=== PATIENT | female | born 1995 | race Caucasian/White ===

== ENCOUNTER 2017-11-05 16:27 | Outpatient (CLI) | payer OTHER ==
--- NOTE | 2017-11-05 17:06 | RAD ---
3 VIEWS LUMBAR SPINE: Date: 11/05/17 COMPARISON: None. HISTORY: Low back pain radiating both hips and legs. FINDINGS: Five lumbar-type vertebral bodies are present with intact pedicles on frontal imaging. Lateral imagin g demonstrates normal vertebral body height and alignment. No acute osseous abnormality. IMPRESSION: No evidence for acute fracture. POS: [facility]
== END 2017-11-05 16:28 | disposition home or self-care (01) ==
LOC: SCSRAD 16:27
PROVIDERS: ATTEND Nurse Practitioner Family
DX: S39.012A Strain of muscle, fascia and tendon of lower back, initial encounter (principal)
CPT/HCPCS: 72100

== ENCOUNTER 2020-06-28 07:55 | Outpatient (CLI) | payer BC ==
[2020-06-28 10:07] LABS: Mean Corpuscular HGB CONC 33.3 g/dL (32.0-36.0); Mean Corpuscular Hemoglobin 29.3 pg (27.0-33.0); Mean Corpuscular Volume 88.1 fl (81.6-98.3); Mean Platelet Volume 9.6 fl (7.4-10.4); Platelet Count 357 10x3/uL (150-450); RBC Distribution Width 12.1 % (11.5-14.5); Red Blood Cell (RBC) Count 4.78 10x6/uL (3.90-5.03); White Blood Cell (WBC) Count 6.4 10x3/uL (3.5-10.5)
[2020-06-28 10:15] LABS: Bilirubin Neg (Negative); Blood, Urine 25 (Negative); Clarity Clear (Clear); Glucose, Urine (Dipstick) Normal (Negative); Ketone, Urine Negative (Negative); Leukocyte Negative (Negative); Nitrite Negative (Negative); Protein, Urine (Dipstick) Negative (Neg-Trace); Specific Gravity, Urine 1.015 (1.002-1.036); Urobilinogen Normal mg/dL (Less than 2)
[2020-06-28 10:15] LABS: Anion Gap 13 mmol/L (10-20); BUN (Urea Nitrogen) 15 mg/dL (7.0-18.7); Calc. Creatinine Clearance 0 mL/min (70-130); Calcium 9.4 mg/dL (7.8-10.44); Carbon Dioxide 26 mmol/L (22-29); Chloride 102 mmol/L (98-107); Glucose 87 mg/dL (70-105); Potassium 3.9 mmol/L (3.5-5.1); Sodium 137 mmol/L (136-145)
[2020-06-28 10:33] LABS: BHCG - Serum Negative (NEGATIVE); Pregs Control Background? CLEAR/WHITE (CLR/WHITE); Pregs Control Bar Appear? YES (CONTROL BAR)
[2020-06-28 10:42] LABS: Bacteria/HPF 2+ HPF (None Seen); Mucous/LPF 1+ LPF (<2+); Oval Fat Bodies/HPF Rare HPF (None Seen)
[2020-06-28 18:59] LABS: SARS-CoV-2 PCR by NAA Not Detected (NotDetected)
== END 2020-06-28 07:56 | disposition home or self-care (01) ==
LOC: LABBT 07:55
PROVIDERS: ATTEND Urology
DX: Z01.812 Encounter for preprocedural laboratory examination (principal); Z20.822 Contact with and (suspected) exposure to COVID-19; N20.1 Calculus of ureter
CPT/HCPCS: 80048; 81001; 84703; 85027; 87086; 87635; U0003; U0005

== ENCOUNTER 2020-07-01 10:57 | Day surgery (SDC) | payer BC ==
[2020-06-30 11:45] VITALS: BMI 48.5
[2020-07-01] MEDS ORDERED: Levofloxacin 500 mg/D5W 100 ml Premix Bag ONE (11:39)
[2020-07-01] MEDS ORDERED: Midazolam HCl 2 mg/2 ml Vial ONE (12:15)
[2020-07-01] MEDS ORDERED: Ondansetron ODT 4 MG TAB ONE (12:15)
[2020-07-01] MEDS ORDERED: Fentanyl 100 MCG/2 ML VIAL ONE (12:31)
[2020-07-01] MEDS ORDERED: Iothalamate Meglumine 60% 50 ML VIAL FS ONE (12:33)
[2020-07-01] MEDS ORDERED: Rocuronium Bromide 10 MG/ML (10ML VIAL) ONE (12:51)
[2020-07-01] MEDS ORDERED: PROPOFOL 200 MG/20 ML VIAL ONE (12:51)
[2020-07-01] MEDS ORDERED: Glycopyrrolate 0.2 MG/ML 5 ML SYRINGE ONE (12:51)
[2020-07-01] MEDS ORDERED: Ondansetron PF 4 MG/2 ML Vial ONE (12:51)
[2020-07-01] MEDS ORDERED: Lidocaine 1% PF 5 ML VIAL ONE (12:51)
[2020-07-01] MEDS ORDERED: Promethazine HCl 25 MG/ML VIAL ONE (13:34)
[2020-07-01] MEDS ORDERED: Oxybutynin 5 MG TAB ONE (14:47)
[2020-07-01] MEDS ORDERED: Ketorolac Tromethamine 30 MG/ML VIAL ONE (14:47)
[2020-07-08 15:14] LABS: CA Oxalate Dihydrate 30 % (.); CA Oxalate Monohydrate 70 % (.); Color Brown (.); Stone Weight 6 mg (.)
== END 2020-07-01 15:20 | disposition home or self-care (01) ==
LOC: SDC 10:57
PROVIDERS: ATTEND Urology
PROC: 0TC78ZZ Extirpation of Matter from Left Ureter, Via Natural or Artificial Opening Endoscopic (ICD-10-PCS; principal; 2020-07-01)
PROC: 0T778DZ Dilation of Left Ureter with Intraluminal Device, Via Natural or Artificial Opening Endoscopic (ICD-10-PCS; principal; 2020-07-01)
DX: N13.2 Hydronephrosis with renal and ureteral calculous obstruction (principal); Z88.5 Allergy status to narcotic agent; Z88.8 Allergy status to other drugs, medicaments and biological substances
CPT/HCPCS: 74420; 82365; 88300; J1885; J1956; J2250; J2405; J2550; J2704; J3010; Q0162; Q9961

== ENCOUNTER 2020-08-12 12:02 | Day surgery (SDC) | payer BC ==
[2020-08-12] MEDS ORDERED: Fentanyl 100 MCG/2 ML VIAL ONE ×4 (13:39→18:20)
[2020-08-12] MEDS ORDERED: Piperacillin/Tazobactam 4.5 GM in Sodium Chloride 0.9% 100 ML IVPB SCH ×2 (14:30→20:00)
[2020-08-12] MEDS ORDERED: Bupivacaine 0.25% HCL 30 ML VIAL ONE (15:37)
[2020-08-12] MEDS ORDERED: Lidocaine 1% w/Epinephrine 1:100K 20 ML VIAL ONE (15:37)
[2020-08-12] MEDS ORDERED: Midazolam HCl 2 mg/2 ml Vial ONE (15:48)
[2020-08-12] MEDS ORDERED: Glycopyrrolate 0.2 MG/ML 5 ML SYRINGE ONE (16:09)
[2020-08-12] MEDS ORDERED: PROPOFOL 200 MG/20 ML VIAL ONE (16:09)
[2020-08-12] MEDS ORDERED: Dexamethasone 20 MG/5 ML VIAL ONE (16:09)
[2020-08-12] MEDS ORDERED: Succinylcholine 200 MG/10 ml SYRINGE FS ONE (16:09)
[2020-08-12] MEDS ORDERED: diphenhydrAMINE 50 MG/ML VIAL ONE (16:09)
[2020-08-12] MEDS ORDERED: Rocuronium Bromide 10 MG/ML (10ML VIAL) ONE (16:09)
[2020-08-12] MEDS ORDERED: Ketorolac Tromethamine 30 MG/ML VIAL ONE (16:09)
[2020-08-12] MEDS ORDERED: Ondansetron PF 4 MG/2 ML Vial ONE (16:09)
[2020-08-12] MEDS ORDERED: HYDROcodone/Acetaminophen 5/325 mg Tablet ONE ×2 (19:45→20:32)
[2020-08-12] MEDS ORDERED: HYDROcodone/Acetaminophen 5/325 mg Tablet PO PRN ×2 (19:50)
[2020-08-12] MEDS ORDERED: traMADol HCl 50 MG TAB PO PRN ×2 (19:51)
== END 2020-08-12 20:55 | disposition home or self-care (01) ==
LOC: SDC 12:02
PROVIDERS: ATTEND Surgery
PROC: 0DTJ4ZZ Resection of Appendix, Percutaneous Endoscopic Approach (ICD-10-PCS; principal; 2020-08-12)
DX: K35.80 Unspecified acute appendicitis (principal); K66.0 Peritoneal adhesions (postprocedural) (postinfection); K21.9 Gastro-esophageal reflux disease without esophagitis; E66.9 Obesity, unspecified; Z68.42 Body mass index [BMI] 45.0-49.9, adult
CPT/HCPCS: 88304; J0690; J1100; J1200; J1885; J2250; J2405; J2543; J2704; J3010; J3490; S0020

== ENCOUNTER 2021-10-05 10:59 | Outpatient (CLI) | payer BC ==
[2021-10-05 12:06] LABS: BHCG - Serum Negative (NEGATIVE); Pregs Control Background? CLEAR/WHITE (CLR/WHITE); Pregs Control Bar Appear? YES (CONTROL BAR)
== END 2021-10-05 11:00 | disposition home or self-care (01) ==
LOC: LABBT 10:59
PROVIDERS: ATTEND Urology
DX: Z01.812 Encounter for preprocedural laboratory examination (principal); N20.1 Calculus of ureter; Z20.822 Contact with and (suspected) exposure to COVID-19
CPT/HCPCS: 84703; 87811

== ENCOUNTER 2021-10-06 06:53 | Day surgery (SDC) | payer BC ==
[2021-10-05 11:45] VITALS: BMI 48.2
[2021-10-06] MEDS ORDERED: Midazolam HCl 2 mg/2 ml Vial ONE (08:00)
[2021-10-06] MEDS ORDERED: Iopamidol 30 ML ONE (08:33)
[2021-10-06] MEDS ORDERED: Fentanyl 100 MCG/2 ML VIAL ONE (08:36)
[2021-10-06] MEDS ORDERED: Levofloxacin 500 mg/D5W 100 ml Premix Bag ONE (08:38)
[2021-10-06] MEDS ORDERED: Lidocaine 1% PF 5 ML VIAL ONE (08:49)
[2021-10-06] MEDS ORDERED: PROPOFOL 200 MG/20 ML VIAL ONE (08:49)
[2021-10-06] MEDS ORDERED: Ondansetron PF 4 MG/2 ML Vial ONE (08:49)
[2021-10-06] MEDS ORDERED: Dexamethasone 20 MG/5 ML VIAL ONE (08:49)
[2021-10-06] MEDS ORDERED: Ketorolac Tromethamine 30 MG/ML VIAL ONE (09:24)
[2021-10-06] MEDS ORDERED: Phenazopyridine HCl 100 MG TAB ONE (09:25)
[2021-10-06] MEDS ORDERED: Oxybutynin 5 MG TAB ONE (09:25)
== END 2021-10-06 11:34 | disposition home or self-care (01) ==
LOC: SDC 06:53
PROVIDERS: ATTEND Urology
PROC: 0T768DZ Dilation of Right Ureter with Intraluminal Device, Via Natural or Artificial Opening Endoscopic (ICD-10-PCS; principal; 2021-10-06)
PROC: 0TC68ZZ Extirpation of Matter from Right Ureter, Via Natural or Artificial Opening Endoscopic (ICD-10-PCS; principal; 2021-10-06)
DX: N13.2 Hydronephrosis with renal and ureteral calculous obstruction (principal); K21.9 Gastro-esophageal reflux disease without esophagitis; Z79.899 Other long term (current) drug therapy
CPT/HCPCS: 74420; 82365; 88300; C2617; J1100; J1885; J1956; J2250; J2405; J2704; J3010; Q9967